=== PATIENT | female | born 1955 | race Caucasian/White ===

== ENCOUNTER 2020-06-05 09:50 | Outpatient (REF) | payer BC, SELFPAY ==
[2020-06-05 11:32] LABS: Alanine Aminotransferase 16 U/L (0-31); Alkaline Phosphatase 81 U/L (39-117); Anion Gap 13 (12-20); Aspartate Amino Transferase 12 U/L (5-31); Bilirubin Total 0.6 mg/dL (0.0-1.0); Blood Urea Nitrogen 22 mg/dL (9-16); Carbon Dioxide 29 mmol/L (22-29); Chloride 103 mmol/L (96-108); Estimated Glomerular Filt Rate > 60; Glucose Random 110 mg/dL (60-115); Potassium 4.3 mmol/l (3.3-5.1); Sodium 141 mmol/L (135-145); Total Protein 6.4 g/dL (6.5-8.0)
== END 2020-06-05 09:51 | disposition home or self-care (01) ==
LOC: HO.HMGCLDS 09:50
PROVIDERS: PCP Internal Medicine; Visit Provider Internal Medicine
DX: R60.9 Edema, unspecified (principal); I10 Essential (primary) hypertension
CPT/HCPCS: 36415; 80053

== ENCOUNTER 2020-08-08 09:43 | Outpatient (REF) | payer BC, SELFPAY ==
[2020-08-08 11:38] LABS: Hematocrit 40.1 % (37-47); Hemoglobin 12.4 g/dl (12.0-16.0); Mean Corpuscular HGB Conc 30.9 g/dl (31.0-35.0); Mean Corpuscular Hemoglobin 27.3 pg (27.0-33.0); Mean Corpuscular Volume 88.1 fL (80-98); Mean Platelet Volume 10.5 fL (9.4-12.3); Platelet Count 229 X10*3/uL (160-400); Red Blood Count 4.55 X10*6/uL (4.20-5.50); Red Cell Distribution Width 15.7 % (11.0-16.0); White Blood Count 5.5 X10*3/uL (4.8-10.8)
[2020-08-08 12:01] LABS: Alanine Aminotransferase 18 U/L (0-31); Alkaline Phosphatase 58 U/L (39-117); Anion Gap 10 (12-20); Aspartate Amino Transferase 15 U/L (5-31); Bilirubin Total 0.6 mg/dL (0.0-1.0); Blood Urea Nitrogen 22 mg/dL (9-16); Calcium 8.9 mg/dL (8.4-10.2); Carbon Dioxide 34 mmol/L (22-29); Chloride 102 mmol/L (96-108); Cholesterol 145 mg/dL; Estimated Glomerular Filt Rate > 60; Glucose Fasting 103 mg/dL (60-99); HDL Cholesterol 54 mg/dL; LDL Cholesterol Calculated 64 mg/dl; Potassium 3.9 mmol/L (3.3-5.1); Sodium 142 mmol/L (135-145); Total Protein 6.4 g/dL (6.5-8.0); Triglycerides 138 mg/dL
[2020-08-08 12:12] LABS: TSH reflex Free T4 1.44 uIU/mL (0.32-4.0)
== END 2020-08-08 09:44 | disposition home or self-care (01) ==
LOC: HO.HMGCLDS 09:43
PROVIDERS: PCP Internal Medicine; Visit Provider Internal Medicine
DX: E78.5 Hyperlipidemia, unspecified (principal); I10 Essential (primary) hypertension; I25.10 Atherosclerotic heart disease of native coronary artery without angina pectoris
CPT/HCPCS: 36415; 80053; 80061; 84443; 85027

== ENCOUNTER 2021-09-04 09:03 | Outpatient (REF) | payer BC, MEDICARE, SELFPAY ==
[2021-09-04 11:37] LABS: Hematocrit 38.4 % (37.0-47.0); Hemoglobin 12.3 g/dl (12.0-16.0); Mean Corpuscular Hemoglobin 28.5 pg (27.0-33.0); Mean Corpuscular Volume 88.9 fL (80.0-98.0); Mean Platelet Volume 10.5 fL (9.4-12.3); Platelet Count 218 X10*3/uL (160-400); Red Blood Count 4.32 X10*6/uL (4.20-5.50); Red Cell Distribution Width 14.4 % (11.0-16.0); White Blood Count 4.9 X10*3/uL (4.8-10.8)
[2021-09-04 11:56] LABS: Alanine Aminotransferase 14 U/L (0-31); Albumin Level 3.9 g/dL (3.5-5.0); Alkaline Phosphatase 61 U/L (39-117); Anion Gap 13 (12-20); Aspartate Amino Transferase 15 U/L (5-31); Bilirubin Total 0.5 mg/dL (0.0-1.0); Blood Urea Nitrogen 19 mg/dL (9-16); Calcium 9.5 mg/dL (8.4-10.2); Carbon Dioxide 29 mmol/L (22-29); Chloride 104 mmol/L (96-108); Cholesterol 139 mg/dL; Estimated Glomerular Filt Rate > 60; Glucose Fasting 106 mg/dL (60-99); HDL Cholesterol 49 mg/dL; LDL Cholesterol Calculated 68 mg/dl; Potassium 3.6 mmol/L (3.3-5.1); Sodium 142 mmol/L (135-145); Total Protein 6.4 g/dL (6.5-8.0); Triglycerides 110 mg/dL
[2021-09-04 12:05] LABS: TSH reflex Free T4 1.65 uIU/mL (0.32-4.0)
== END 2021-09-04 09:04 | disposition home or self-care (01) ==
LOC: HO.HMGCLDS 09:03
PROVIDERS: PCP Internal Medicine; Visit Provider Internal Medicine
DX: Z00.00 Encounter for general adult medical examination without abnormal findings (principal); I10 Essential (primary) hypertension; E78.2 Mixed hyperlipidemia
CPT/HCPCS: 36415; 80053; 80061; 84443; 85027

== ENCOUNTER 2022-04-16 09:58 | Outpatient (REF) | payer BC, MEDICARE, SELFPAY ==
[2022-04-16 12:25] LABS: Creatinine Urine 116.31 mg/dL; Microalbum/Creatinine Ratio Ur 6.8 ug/mg cr
[2022-04-16 12:44] LABS: Estimated Average Glucose 117 mg/dL; Hemoglobin A1c % 5.7 %
[2022-04-16 12:59] LABS: Alanine Aminotransferase 15 U/L (0-31); Albumin Level 4.2 g/dL (3.5-5.0); Alkaline Phosphatase 66 U/L (39-117); Anion Gap 11 (12-20); Aspartate Amino Transferase 16 U/L (5-31); Bilirubin Total 0.8 mg/dL (0.0-1.0); Blood Urea Nitrogen 19 mg/dL (9-16); Calcium 9.3 mg/dL (8.4-10.2); Carbon Dioxide 32 mmol/L (22-29); Chloride 103 mmol/L (96-108); Cholesterol 156 mg/dL; Estimated Glomerular Filt Rate > 60; Glucose Fasting 96 mg/dL (60-99); HDL Cholesterol 54 mg/dL; LDL Cholesterol Calculated 80 mg/dl; Potassium 3.6 mmol/L (3.3-5.1); Sodium 142 mmol/L (135-145); Total Protein 6.6 g/dL (6.5-8.0); Triglycerides 114 mg/dL
== END 2022-04-16 09:59 | disposition home or self-care (01) ==
LOC: HO.HMGCLDS 09:58
PROVIDERS: PCP Internal Medicine; Visit Provider Internal Medicine
DX: I10 Essential (primary) hypertension (principal); R73.9 Hyperglycemia, unspecified; E78.5 Hyperlipidemia, unspecified
CPT/HCPCS: 36415; 80053; 80061; 82043; 83036

== ENCOUNTER 2022-04-16 10:53 | Outpatient (REF) | payer BC, MEDICARE, SELFPAY ==
[2022-04-18 22:04] LABS: HPV mRNA E6/E7 Not Detected (Not Detected)
== END 2022-04-16 10:54 | disposition home or self-care (01) ==
LOC: HO.LNP 10:53
PROVIDERS: Visit Provider Internal Medicine
DX: Z01.419 Encounter for gynecological examination (general) (routine) without abnormal findings (principal); Z11.51 Encounter for screening for human papillomavirus (HPV)
CPT/HCPCS: 87624; 88142

== ENCOUNTER 2022-10-15 08:58 | Outpatient (REF) | payer MEDICARE, SELFPAY ==
[2022-10-15 12:20] LABS: Alanine Aminotransferase 15 U/L (0-31); Albumin Level 3.9 g/dL (3.5-5.0); Alkaline Phosphatase 80 U/L (39-117); Anion Gap 10 (12-20); Aspartate Amino Transferase 15 U/L (5-31); Bilirubin Total 0.6 mg/dL (0.0-1.0); Blood Urea Nitrogen 13 mg/dL (9-16); Calcium 9.3 mg/dL (8.4-10.2); Carbon Dioxide 29 mmol/L (22-29); Chloride 108 mmol/L (96-108); Cholesterol 171 mg/dL; Estimated Glomerular Filt Rate > 60; Glucose Fasting 103 mg/dL (60-99); HDL Cholesterol 54 mg/dL; LDL Cholesterol Calculated 94 mg/dl; Potassium 4.1 mmol/L (3.3-5.1); Sodium 143 mmol/L (135-145); Total Protein 6.3 g/dL (6.5-8.0); Triglycerides 119 mg/dL
[2022-10-15 12:24] LABS: Estimated Average Glucose 108 mg/dL; Hemoglobin A1c % 5.4 %
== END 2022-10-15 08:59 | disposition home or self-care (01) ==
LOC: HO.HMGCLDS 08:58
PROVIDERS: PCP Internal Medicine; Visit Provider Internal Medicine
DX: Z00.00 Encounter for general adult medical examination without abnormal findings (principal); R73.9 Hyperglycemia, unspecified; E78.5 Hyperlipidemia, unspecified
CPT/HCPCS: 36415; 80053; 80061; 83036

== ENCOUNTER 2023-04-29 08:16 | Outpatient (AMB) | payer BC, MEDICARE, SELFPAY ==
[2023-04-29 08:19] VITALS: BP 120/74; PULSE 71; O2SAT 97; BMI 39.1
--- NOTE | 2023-04-29 08:19 | MHC.PC.OV ---
Vital Signs 04/29/23 08:19 Height 5 ft 4 in Weight 228 lb BMI 39.1 BP 120/74 Blood Pressure Location Rt brachial Position Sitting Pulse 71 Pulse Source Pulse Oximeter Pulse Oximetry (%) 97 Intake Visit Reasons: Annual PE Intake Note: pt is here for annual exam, physical colonoscopy completed 2017, 10 year repeat last mammo 04/[address], upcoming [facility] mammo 05/2023 [employer] Machin[employer] Required: No Accompanied by: Self / Same As Patient Allergies lisinopril Allergy (Unknown, Verified 04/29/23 08:20) Cough Medication List - Last Reconciled 04/29/23 by Taryn Payton MD amlodipine 5 mg PO DAILY aspirin 81 mg PO DAILY carvedilol 25 mg PO BID furosemide 20 mg PO Q OTHER DAY losartan 100 mg PO DAILY omeprazole 20 mg PO DAILY potassium chloride ER 10 mEq PO Q OTHER DAY rosuvastatin 40 mg PO DAILY triamterene-hydrochlorothiazid 37.5-25 mg 1 tab PO DAILY Tobacco use date assessed: 04/29/23 Fall risk assessment: No Falls in past year Last assessed Fall Risk: 04/29/23 Dental Screening Dental Screen Date: 04/29/23 Did you have a dental visit in the last 12 months?: Yes Did you have a dental problem in the last 6 months where you did not have access to dental care?: No Was dental information given to patient?: Patient has dentist HPI Annual PE HPI Details Pt presents for PE. Patient's granddaughter had a baby boy 7 months ago. [facility] Medical History Hyperglycemia [place] of foot Annual physical exam Edema Obese Abnormal Pap smear of cervix Osteoarthritis of right hip History of mammogram Goiter Hypertension GERD (gastroesophageal reflux disease) Coronary artery disease Hyperlipidemia Surgical History H/O colonoscopy History of esophagogastroduodenoscopy (EGD) Family History Father No problems noted. Mother HTN (hypertension) Social History Housing: House Patient Tobacco Use Status: Former Tobacco user Quit Date: over 20 years ago e-Cigarette/Vaping Use: Never Used Current occupational status: employed Cognitive needs: No Hearing needs: No Vision needs: Yes Questionnaire PHQ-9 Over the last 2 weeks, how often have you been bothered by any of the following problems? 1. Little interest or pleasure in doing things: not at all 2. Feeling down, depressed, or hopeless: not at all 3. Trouble falling or staying asleep, or sleeping too much: not at all 4. Feeling tired or having little energy: not at all 5. Poor appetite or overeating: not at all 6. Feeling bad about yourself - or that you are a failure or have let yourself or your family down: not at all 7. Trouble concentrating on things, such as reading the newspaper or watching television: not at all 8. Moving or speaking so slowly that other people could have noticed. Or the opposite - being so fidgety or restless that you have been moving around a lot more than usual: not at all 9. Thoughts that you would be better off or of hurting yourself in some way: not at all Total score: 0 Depression Screening Interpretation: Negative Depression Screening Done: Yes 10948 - PHQ-9 Billing: Yes Source: Developed by Drs. Luc Hammer, Masha Mae, Wayne Ackerman and colleagues, with an educational ted from [employer] Thrive Questionnaire Date Thrive assessed: 09/11/21 AUDIT C Alcohol Use Questionnaire (AUDIT-C) 1. How often do you have a drink containing alcohol?: Monthly or less 2. How many drinks containing alcohol do you have on a typical day when you are drinking?: 1 or 2 3. How often do you have six or more drinks on one occasion?: Never Total Score: 1 Score Reviewed/Action Taken: Yes CAROLINA-7 AMB Questionnaire CAR[place]INA-7 Date CAROLINA - 7 assessed: 04/29/23 Feeling nervous, anxious, or on edge: 0 = Not at all Not being able to stop or control worryin = Not at all Worrying too much about different things: 0 = Not at all Trouble relaxin = Not at all Being so restless that it is hard to sit still: 0 = Not at all Becoming easily annoyed or irritable: 0 = Not at all Feeling afraid as if something awful might happen: 0 = Not at all Total CAR[place]INA-7 score (0-4 normal; 5-9 mild; 10-14 moderate; 15-21 severe): 0 Source: Developed by Drs. Luc Hammer, Masha Mae, Wayne Ackerman and colleagues, with an educational ted from [employer]. CAR[place]INA-7 Assessment Billing CAR[place]INA-7 Assessment Tool: CAR[place]-7 Assessment 37821 Review of Systems Const All systems reviewed & are unremarkable except as noted in HPI and below Reports no additional complaints Eyes Reports no additional complaints ENT Reports no additional complaints Card Reports no additional complaints Resp Reports no additional complaints GI Reports no additional complaints Reports no additional complaints Physical exam (Primary Care) Vital Signs: Last Vital Signs Pulse 71 04/29/23 08:19 BP 120/74 04/29/23 08:19 Pulse Ox 97 04/29/23 08:19 BMI result Body Mass Index 39.1 Tobacco/Smoking Status: Tobacco use Status Tobacco use date assessed 04/29/23 04/29/23 08:21 Patient Tobacco Use Status Former Tobacco user 04/29/23 08:21 e-Cigarette/Vaping Use Never Used 04/29/23 08:21 PHQ-9: PHQ-9 Score PHQ-9: Total score 0 04/29/23 08:30 Depression Screening Interpretation: Negative Thrive Assessment: Date of Thrive Assessment Date Thrive assessed 09/11/21 04/29/23 08:21 Const General: no acute distress HENMT Ears: hearing grossly normal bilaterally Face and sinus: Yes normal facial exam Mouth: Normal oral and palatal mucosa present Throat: Yes posterior oropharynx normal Eyes General: appearance normal, both eyes and all related structures Neck Neck: Yes no lymphadenopathy and Yes supple Thyroid: diffusely enlarged Resp Effort & Inspection: normal respiratory effort Auscultation: clear to auscultation bilaterally Cardio Rhythm: regular rhythm Heart sounds: S1 normal heart sound present and S2 normal heart sound present GI Inspection: Yes normal to inspection Palpation (GI): Soft to palpation Percussion: Yes normal to percussion Auscultation: normal bowel sounds Assessment and Plan Assessment & Plan (1) Goiter: Comment: US 2019, multiple small nodules Code(s): E04.9 - Nontoxic goiter, unspecified Plan: recheck thyroid US (2) Coronary artery disease: Comment: s/p stent 99% lesion in LAD 06/19/2013 nl stress test 10/2013, negative nuclear stress test 02/2019 at [facility] Code(s): I25.10 - Atherosclerotic heart disease of [place] coronary artery without angina pectoris Plan: Continue current medications regular physical activity follow-up with relationship manager annually (3) Hypertension: Comment: BP goal less than 130/80 Code(s): I10 - Essential (primary) hypertension Plan: Continue medications (4) Hyperlipidemia: Code(s): E78.5 - Hyperlipidemia, unspecified Plan: Continue statin (5) Annual physical exam: Code(s): Z00.00 - Encounter for general adult medical examination without abnormal findings Plan: Well-balanced diet and regular physical activity weight loss discussed with the patient. She is up-to-date with the mammogram and colonoscopy. Patient will return in 6 months (6) Hyperglycemia: Code(s): R73.9 - Hyperglycemia, unspecified Orders: Orders Hemoglobin A1c 6 Months E78.5 - Hyperlipidemia, unspecified, I10 - Essential (primary) hypertension, R73.9 - Hyperglycemia, unspecified US thyroid Today E04.9 - Nontoxic goiter, unspecified Comprehensive [place]. Panel Fast 6 Months E78.5 - Hyperlipidemia, unspecified, I10 - Essential (primary) hypertension, R73.9 - Hyperglycemia, unspecified Lipid Panel 6 Months E78.5 - Hyperlipidemia, unspecified, I10 - Essential (primary) hypertension, R73.9 - Hyperglycemia, unspecified Coding Level of Care Code Est Pt Prev Care >65y(24889) Diagnoses Goiter E04.9 Coronary artery disease I25.10 Hypertension I10 Hyperlipidemia E78.5 Annual physical exam Z00.00 Hyperglycemia R73.9 Additional Codes CAROLINA-7 Assessment Billing - CAR[place]INA-7 Assessment Tool: CAROLINA-7 Assessment [id number] ([id number])
== END 2023-04-29 08:52 | disposition home or self-care (01) ==
PROVIDERS: PCP Internal Medicine; Visit Provider Internal Medicine
DX: E04.9 Nontoxic goiter, unspecified (principal); I25.10 Atherosclerotic heart disease of native coronary artery without angina pectoris; I10 Essential (primary) hypertension; E78.5 Hyperlipidemia, unspecified; Z00.00 Encounter for general adult medical examination without abnormal findings; R73.9 Hyperglycemia, unspecified
CPT/HCPCS: 99397

== ENCOUNTER 2023-04-29 08:54 | Outpatient (REF) | payer BC, MEDICARE, SELFPAY ==
[2023-04-29 11:32] LABS: MANUAL DIFF FLAG NO
[2023-04-29 11:57] LABS: Estimated Average Glucose 114 mg/dL; Hemoglobin A1c % 5.6 % (<6.0)
[2023-04-29 12:05] LABS: Basophils Percent Auto 0.6 % (0-2); Eosinophils Absolute Auto 0.1 X10*3/uL (0.0-0.4); Eosinophils Percent Auto 2.8 % (0-4); Hematocrit 39.6 % (37.0-47.0); Hemoglobin 12.7 g/dl (12.0-16.0); Imm Gran Abs Auto 0.01 X10*3/uL (0.00-0.03); Imm Gran Pct Auto 0.2 % (0.0-0.4); Lymphocytes Absolute Auto 1.6 X10*3/uL (1.2-4.9); Lymphocytes Percent Auto 35.1 % (20-40); Mean Corpuscular HGB Conc 32.1 g/dl (31.0-35.0); Mean Corpuscular Hemoglobin 28.6 pg (27.0-33.0); Mean Corpuscular Volume 89.2 fL (80.0-98.0); Mean Platelet Volume 10.1 fL (9.4-12.3); Monocytes Absolute Auto 0.4 X10*3/uL (0.1-1.2); Monocytes Percent Auto 9.5 % (2-11); Neutrophils Absolute Auto 2.4 x10*3/uL (2.0-8.3); Neutrophils Percent Auto 51.8 % (45-73); Platelet Count 223 X10*3/uL (160-400); Red Blood Count 4.44 X10*6/uL (4.20-5.50); Red Cell Distribution Width 14.5 % (11.0-16.0); White Blood Count 4.6 X10*3/uL (4.8-10.8)
[2023-04-29 12:42] LABS: Creatinine Urine 132.72 mg/dL
[2023-04-29 12:50] LABS: Alanine Aminotransferase 16 U/L (0-31); Alkaline Phosphatase 52 U/L (39-117); Anion Gap 11 (12-20); Aspartate Amino Transferase 17 U/L (5-31); Bilirubin Total 0.5 mg/dL (0.0-1.0); Blood Urea Nitrogen 17 mg/dL (9-16); Calcium 9.3 mg/dL (8.4-10.2); Carbon Dioxide 29 mmol/L (22-29); Chloride 105 mmol/L (96-108); Estimated Glomerular Filt Rate > 60; Glucose Fasting 77 mg/dL (60-99); Potassium 3.4 mmol/L (3.3-5.1); Sodium 142 mmol/L (135-145); Total Protein 6.7 g/dL (6.5-8.0)
[2023-04-29 13:04] LABS: TSH reflex Free T4 1.03 uIU/mL (0.32-4.0)
== END 2023-04-29 08:55 | disposition home or self-care (01) ==
LOC: HO.HMGCLDS 08:54
PROVIDERS: PCP Internal Medicine; Visit Provider Internal Medicine
DX: I10 Essential (primary) hypertension (principal); R73.9 Hyperglycemia, unspecified; E78.5 Hyperlipidemia, unspecified
CPT/HCPCS: 36415; 80053; 82043; 82570; 83036; 84443; 85025

== ENCOUNTER 2023-05-27 07:59 | Outpatient (AMB) | payer BC, MEDICARE, SELFPAY ==
[2023-05-27 08:01] VITALS: BP 118/70; PULSE 75; TEMP 37; O2SAT 97; BMI 39.1
--- NOTE | 2023-05-27 08:01 | MHC.OFFWIV ---
Intake Vital Signs 05/27/23 08:01 Height 5 ft 4 in Weight 228 lb BMI 39.1 BP 118/70 Blood Pressure Location Lt brachial Position Sitting Pulse 75 Pulse Source Pulse Oximeter Temp 98.6 F Temp Source Oral Pulse Oximetry (%) 97 Oxygen Delivery Method Room Air Intake Visit Reasons: Est/congestion (lobby masked) Intake Note: pt is here for c.o congestion, coughing since 05/10/23 pt had covid in the beginning of the year and states she is still sick Patient Tobacco Use Status: Former Tobacco user Quit Date: over 20 years ago Allergies lisinopril Allergy (Unknown, Verified 05/27/23 08:05) Cough Do you need a note to return to daycare/school/sports/work: Yes HPI HPI Comments History of Present Illness Details The patient presents to urgent care for evaluation of cough. She reports that in the beginning the year about 2 weeks ago she developed COVID and got over that. She states around May 17 or she started developing congestion symptoms again that felt different than what she previously had with COVID. She reports that she has had an ongoing cough. No fever no shortness a breath nasal congestion. [facility] Medical History Hyperglycemia [place] of foot Annual physical exam Edema Obese Abnormal Pap smear of cervix Osteoarthritis of right hip History of mammogram Goiter Hypertension GERD (gastroesophageal reflux disease) Coronary artery disease Hyperlipidemia Surgical History H/O colonoscopy History of esophagogastroduodenoscopy (EGD) Family History Father No problems noted. Mother HTN (hypertension) Social History Housing: House Patient Tobacco Use Status: Former Tobacco user Quit Date: over 20 years ago e-Cigarette/Vaping Use: Never Used Current occupational status: employed Cognitive needs: No Hearing needs: No Vision needs: Yes Review of Systems Const Reports headache(s) and Denies increased appetite ENT Reports headache(s), Reports nasal obstruction, Denies disequilibrium, Reports post nasal drip, Reports sinus pain and Denies sore throat Card Denies radiating jaw, neck or arm pain and Denies dyspnea Resp Denies hemoptysis and Denies dyspnea Neuro Reports headache(s) and Denies disequilibrium Physical Exam Vital Signs: Last Vital Signs Temp 98.6 F 05/27/23 08:01 Pulse 75 05/27/23 08:01 BP 118/70 05/27/23 08:01 Pulse Ox 97 05/27/23 08:01 Oxygen Delivery Method Room Air 05/27/23 08:01 BMI result Body Mass Index 39.1 Const General: healthy appearing and no acute distress Chest Chest palpation & inspection: normal inspection of the chest Resp Effort & Inspection: normal respiratory effort and able to speak in complete sentences Auscultation: clear to auscultation bilaterally Assessment & Plan Assessment & Plan (1) Cough: Code(s): R05.9 - Cough, unspecified Plan Lungs are clear patient well-appearing vital signs unremarkable. Symptoms likely consistent with viral URI. Patient will be prescribed course of Tessalon Perles to see this is helpful for her cough. Though in the office there was no coughing. Coding Level of Care Code Est Pt Level 3 (45582) Diagnoses Cough R05.9
== END 2023-05-27 09:06 | disposition home or self-care (01) ==
PROVIDERS: PCP Internal Medicine; Visit Provider Emergency Medicine
DX: R05.9 Cough, unspecified (principal)
CPT/HCPCS: 99213

== ENCOUNTER 2023-07-01 08:19 | Outpatient (REF) | payer BC, MEDICARE, SELFPAY ==
--- NOTE | ~2023-07-01 | US_ITS ---
EXAMINATION: US THYROID CLINICAL INFORMATION: Nontoxic goiter, unspecified. COMPARISON: Ultrasound soft tissue head/neck thyroid dated 02/22/2019. TECHNIQUE: Linear transducer grayscale and color Doppler examination with attention to the region of the thyroid. FINDINGS: SIZE: Measurements of the thyroid lobes and nodules are given in sagittal, anteroposterior and transverse dimensions respectively. Right Thyroid Lobe: 4.7 x 1.6 x 2.0 cm, volume 7.8 mL. Previously 4.9 x 1.6 x 1.7 cm, volume 7.0 mL. Parenchyma: The gland echotexture is homogeneous. Thyroid vascularity is normal. Left Thyroid Lobe: 4.8 x 1.4 x 1.8 cm, volume 6.0 mL. Previously 4.1 x 1.6 x 1.8 cm, volume 6.2 mL. Parenchyma: The gland echotexture is homogeneous. Thyroid vascularity is normal. Isthmus: 0.48 cm in maximum AP dimension. Previously 0.50 cm. Estimated total number of nodules greater than or equal to 1 cm: 1. Aviation Safety Inspector nodules are described as follows: 1. Location: Right mid. Size: 0.64 x 0.40 x 0.47 cm, volume 0.06 mL. Previously: 0.70 x 0.40 x 0.50 cm, volume 0.07 mL. Nodule characteristics: Composition: Spongiform (0). Echogenicity: Anechoic (0). Shape: Not taller than wide (0). Margins: Smooth (0). Echogenic Foci: None (0). ACR TI-RADS total points: 0 ACR TI-RADS category: 1 Significant change in size (>/= 20% in 2 dimensions and minimal increase of 2 mm or 50% or greater increase in volume): No Change in features: No Change in ACR TI-RADS risk category: No 2. Location: Left superior. Size: 1.5 x 0.94 x 1.4 cm, volume 1.1 mL. Previously: 1.2 x 0.60 x 0.80 cm, volume 0.30 mL. Nodule characteristics: Composition: Mixed cystic and solid (1). Echogenicity: Hypoechoic (2). Shape: Not taller than wide (0). Margins: Smooth (0). Echogenic Foci: None (0). ACR TI-RADS total points: 3 ACR TI-RADS category: 3 Significant change in size (>/= 20% in 2 dimensions and minimal increase of 2 mm or 50% or greater increase in volume): Yes Change in features: No Change in ACR TI-RADS risk category: No 3. Location: Left inferior. Size: 0.75 x 0.38 x 0.65 cm, volume 0.10 mL. Previously: 0.76 x 0.33 x 0.66 cm, volume 0.09 mL. Nodule characteristics: Composition: Mixed cystic and solid (1). Echogenicity: Hypoechoic (2). Shape: Not taller than wide (0). Margins: Smooth (0). Echogenic Foci: None (0). ACR TI-RADS total points: 3 ACR TI-RADS category: 3 Significant change in size (>/= 20% in 2 dimensions and minimal increase of 2 mm or 50% or greater increase in volume): No Change in features: No Change in ACR TI-RADS risk category: No 4. Location: Left mid. Size: 0.41 x 0.28 x 0.44 cm, volume 0.03 mL. Previously: 0.58 x 0.29 x 0.60 cm, volume 0.05 mL. Nodule characteristics: Composition: Cystic(0). ACR TI-RADS total points: 0 ACR TI-RADS category: 1 Significant change in size (>/= 20% in 2 dimensions and minimal increase of 2 mm or 50% or greater increase in volume): No Change in features: No Change in ACR TI-RADS risk category: No NODES: No lymphadenopathy is seen in the tissue surrounding the thyroid gland. US/US thyroid IMPRESSION: Left 1.5 cm superior pole TI-RADS 3 nodule. Per ACR criteria given size greater than 1.5 cm, annual follow-up is recommended at 1, 2, 3, and 5 years from date of baseline exam. Remaining nodules do not meet ACR criteria for followup. ACR TI-RADS RECOMMENDATION REFERENCE: Ultrasound-guided fine-needle aspiration, follow up ultrasound, no further followup. * TR1 (0 point) and TR2 (2 points): No FNA or followup * TR3 (3 points): FNA if more than or equal to 2.5 cm in maximum dimension, follow up ultrasound in 1, 3 and 5 years if 1.5 to 2.4 cm in maximum dimension. * TR4 (4-6 points): FNA if more than or equal to 1.5 cm in maximum dimension, follow up ultrasound in 1, 2, 3 and 5 years if 1 to 1.4 cm in maximum dimension. * TR5 (more than or equal to 7 points): FNA if more than or equal to 1 cm in maximum dimension, follow up ultrasound every year for 5 years if 0.5 to 0.9 cm in maximum dimension. * TR3, TR4 or TR5 nodules that are below the size threshold for follow up receive no followup.
== END 2023-07-01 08:20 | disposition home or self-care (01) ==
LOC: HO.HMGCX 08:19
PROVIDERS: PCP Internal Medicine; Visit Provider Internal Medicine
DX: E04.9 Nontoxic goiter, unspecified (principal)
CPT/HCPCS: 76536

== ENCOUNTER 2023-12-09 08:49 | Outpatient (REF) | payer BC, MEDICARE, SELFPAY ==
[2023-12-09 10:17] LABS: Estimated Average Glucose 114 mg/dL; Hemoglobin A1c % 5.6 % (<6.0)
[2023-12-09 11:24] LABS: Alanine Aminotransferase 15 U/L (0-31); Albumin Level 3.9 g/dL (3.5-5.0); Alkaline Phosphatase 60 U/L (39-117); Anion Gap 9 (12-20); Aspartate Amino Transferase 14 U/L (5-31); Bilirubin Total 0.5 mg/dL (0.0-1.0); Blood Urea Nitrogen 18 mg/dL (9-16); Calcium 9.3 mg/dL (8.4-10.2); Carbon Dioxide 31 mmol/L (22-29); Chloride 106 mmol/L (96-108); Cholesterol 144 mg/dL (<200); Estimated Glomerular Filt Rate > 60; Glucose Fasting 108 mg/dL (60-99); HDL Cholesterol 53 mg/dL (>40); LDL Cholesterol Calculated 64 mg/dL (<100); Potassium 3.8 mmol/L (3.3-5.1); Sodium 142 mmol/L (135-145); Total Protein 6.4 g/dL (6.5-8.0); Triglycerides 136 mg/dL (<150)
== END 2023-12-09 08:50 | disposition home or self-care (01) ==
LOC: HO.HMGCLDS 08:49
PROVIDERS: PCP Internal Medicine; Visit Provider Internal Medicine
DX: R73.9 Hyperglycemia, unspecified (principal); E78.5 Hyperlipidemia, unspecified; I10 Essential (primary) hypertension
CPT/HCPCS: 36415; 80053; 80061; 83036

== ENCOUNTER 2023-12-09 09:04 | Outpatient (AMB) | payer BC, MEDICARE, SELFPAY ==
[2023-12-09 09:29] VITALS: BP 114/66; PULSE 61; O2SAT 96; BMI 39.5
--- NOTE | 2023-12-09 09:29 | MHC.PC.OV ---
Vital Signs 12/09/23 09:29 Height 5 ft 4 in Weight 230 lb BMI 39.5 BP 114/66 Blood Pressure Location Rt brachial Position Sitting Pulse 61 Pulse Source Pulse Oximeter Pulse Oximetry (%) 96 Oxygen Delivery Method Room Air Intake Visit Reasons: 6mnth f/u chk up Intake Note: Pt is here today for 6 months follow up visit. Allergies lisinopril Allergy (Unknown, Verified 12/09/23 09:30) Cough Medication List - Last Reconciled 12/09/23 by Taryn Payton MD amlodipine 5 mg PO DAILY aspirin 81 mg PO DAILY carvedilol 25 mg PO BID furosemide 20 mg PO Q OTHER DAY losartan 100 mg PO DAILY omeprazole 20 mg PO DAILY potassium chloride ER 10 mEq PO Q OTHER DAY rosuvastatin 40 mg PO DAILY triamterene-hydrochlorothiazid 37.5-25 mg 1 tab PO DAILY Tobacco use date assessed: 12/09/23 Fall risk assessment: No Falls in past year Last assessed Fall Risk: 12/09/23 Dental Screening Dental Screen Date: 12/09/23 Did you have a dental visit in the last 12 months?: Yes Did you have a dental problem in the last 6 months where you did not have access to dental care?: No Was dental information given to patient?: Patient has dentist HPI 6mnth f/u chk up HPI Details Patient presents for the follow-up on hypertension hyperlipidemia stable on current medications. [facility] Medical History Hyperglycemia [place] of foot Annual physical exam Edema Obese Abnormal Pap smear of cervix Osteoarthritis of right hip History of mammogram Goiter Hypertension GERD (gastroesophageal reflux disease) Coronary artery disease Hyperlipidemia Surgical History H/O colonoscopy History of esophagogastroduodenoscopy (EGD) Family History Father No problems noted. Mother HTN (hypertension) Social History Housing: House Patient Tobacco Use Status: Former Tobacco user e-Cigarette/Vaping Use: Never Used service: No Current occupational status: employed Cognitive needs: No Hearing needs: No Vision needs: Yes Questionnaire PHQ-9 Over the last 2 weeks, how often have you been bothered by any of the following problems? 1. Little interest or pleasure in doing things: not at all 2. Feeling down, depressed, or hopeless: not at all 3. Trouble falling or staying asleep, or sleeping too much: not at all 4. Feeling tired or having little energy: not at all 5. Poor appetite or overeating: not at all 6. Feeling bad about yourself - or that you are a failure or have let yourself or your family down: not at all 7. Trouble concentrating on things, such as reading the newspaper or watching television: not at all 8. Moving or speaking so slowly that other people could have noticed. Or the opposite - being so fidgety or restless that you have been moving around a lot more than usual: not at all 9. Thoughts that you would be better off or of hurting yourself in some way: not at all Total score: 0 Depression Screening Interpretation: Negative Depression Screening Done: Yes Source: Developed by Drs. Lcu Hammer, Masha Mae, Wayne Ackerman and colleagues, with an educational ted from [employer]. Thrive Questionnaire Date Thrive assessed: 12/09/23 I am a: Patient What is your living situation today?: I have a steady place to live Within the past 12 months, did the food you bought not last and you didn't have the money to get more?: Never true Within the past 12 months, did you worry whether your food would run out before you got money to buy more?: Never true Do you have trouble paying for medicines?: No Do you have trouble getting transportation to medical appointments?: No Do you have trouble paying your heating and electricity bill?: No Do you have trouble taking care of your child, family member or friend?: No Do you have trouble with day-to-day activities such as bathing, preparing meals, shopping, managing finances, etc.?: No Are you currently unemployed and looking for a job?: Yes Are you interested in more education?: No Please select the resources that you would like help with: Housing/Care Home Currently or been in a relationship where the following occur: No concerns reported THRIVE Score: 0 AUDIT C Alcohol Use Questionnaire (AUDIT-C) 1. How often do you have a drink containing alcohol?: Never 3. How often do you have six or more drinks on one occasion?: Never Total Score: 0 CAROLINA-7 AMB Questionnaire CAROLINA-7 Date CAROLINA - 7 assessed: 12/09/23 Feeling nervous, anxious, or on edge: 0 = Not at all Not being able to stop or control worryin = Not at all Worrying too much about different things: 1 = Several days Trouble relaxin = Not at all Being so restless that it is hard to sit still: 0 = Not at all Becoming easily annoyed or irritable: 0 = Not at all Feeling afraid as if something awful might happen: 0 = Not at all Total CAROLINA-7 score (0-4 normal; 5-9 mild; 10-14 moderate; 15-21 severe): 1 Source: Developed by Drs. Luc Hammer, Masha Mae, Wayne Ackerman and colleagues, with an educational ted from [employer]. Review of Systems Const All systems reviewed & are unremarkable except as noted in HPI and below Card Reports no additional complaints Resp Reports no additional complaints GI Reports no additional complaints Reports no additional complaints Physical exam (Primary Care) Vital Signs: Last Vital Signs Pulse 61 12/09/23 09:29 BP 114/66 12/09/23 09:29 Pulse Ox 96 12/09/23 09:29 Oxygen Delivery Method Room Air 12/09/23 09:29 BMI result Body Mass Index 39.5 Tobacco/Smoking Status: Tobacco use Status Tobacco use date assessed 12/09/23 12/09/23 09:30 Patient Tobacco Use Status Former Tobacco user 12/09/23 09:30 e-Cigarette/Vaping Use Never Used 12/09/23 09:30 PHQ-9: PHQ-9 Score PHQ-9: Total score 0 12/09/23 09:37 Depression Screening Interpretation: Negative Thrive Assessment: Date of Thrive Assessment Date Thrive assessed 12/09/23 12/09/23 09:30 Currently or been in a relationship where the following occur: No concerns reported Const General: no acute distress HENMT Head: Yes normal to inspection Eyes General: appearance normal, both eyes and all related structures Resp Effort & Inspection: able to speak in complete sentences Auscultation: clear to auscultation bilaterally Cardio Rhythm: regular rhythm Heart sounds: S1 normal heart sound present and S2 normal heart sound present GI Inspection: Yes normal to inspection Palpation (GI): Soft to palpation Percussion: Yes normal to percussion Assessment and Plan Assessment & Plan (1) Hyperlipidemia: Code(s): E78.5 - Hyperlipidemia, unspecified Plan: cont statin (2) Coronary artery disease: Comment: s/p stent 99% lesion in LAD 06/19/2013 nl stress test 10/2013, negative nuclear stress test 02/2019 at [facility] Code(s): I25.10 - Atherosclerotic heart disease of [place] coronary artery without angina pectoris Plan: Continue current medications (3) Hypertension: Comment: BP goal less than 130/80 Code(s): I10 - Essential (primary) hypertension Plan: Continue current medications Orders: Orders Complete Blood Count Auto Diff 6 Months E78.5 - Hyperlipidemia, unspecified, I10 - Essential (primary) hypertension, I25.10 - Atherosclerotic heart disease of [place] coronary artery without angina pectoris, Z00.00 - Encounter for general adult medical examination without abnormal findings Lipid Panel 6 Months E78.5 - Hyperlipidemia, unspecified, I10 - Essential (primary) hypertension, I25.10 - Atherosclerotic heart disease of [place] coronary artery without angina pectoris, Z00.00 - Encounter for general adult medical examination without abnormal findings Hemoglobin A1c 6 Months E78.5 - Hyperlipidemia, unspecified, I10 - Essential (primary) hypertension, I25.10 - Atherosclerotic heart disease of [place] coronary artery without angina pectoris, Z00.00 - Encounter for general adult medical examination without abnormal findings TSH reflex Free T4 6 Months E78.5 - Hyperlipidemia, unspecified, I10 - Essential (primary) hypertension, I25.10 - Atherosclerotic heart disease of [place] coronary artery without angina pectoris, Z00.00 - Encounter for general adult medical examination without abnormal findings Comprehensive [place]. Panel Fast 6 Months E78.5 - Hyperlipidemia, unspecified, I10 - Essential (primary) hypertension, I25.10 - Atherosclerotic heart disease of [place] coronary artery without angina pectoris, Z00.00 - Encounter for general adult medical examination without abnormal findings Microalbumin, Random (w Creat) 6 Months E78.5 - Hyperlipidemia, unspecified, I10 - Essential (primary) hypertension, I25.10 - Atherosclerotic heart disease of [place] coronary artery without angina pectoris, Z00.00 - Encounter for general adult medical examination without abnormal findings Coding Level of Care Code Est Pt Level 4 (21005) Diagnoses Hyperlipidemia E78.5 Coronary artery disease I25.10 Hypertension I10
== END 2023-12-09 09:50 | disposition home or self-care (01) ==
PROVIDERS: PCP Internal Medicine; Visit Provider Internal Medicine
DX: E78.5 Hyperlipidemia, unspecified (principal); I25.10 Atherosclerotic heart disease of native coronary artery without angina pectoris; I10 Essential (primary) hypertension
CPT/HCPCS: 99214

== ENCOUNTER 2024-06-14 09:10 | Outpatient (REF) | payer BC, MEDICARE, SELFPAY ==
[2024-06-14 09:53] LABS: MANUAL DIFF FLAG NO
[2024-06-14 10:01] LABS: Basophils Percent Auto 0.8 % (0-2); Eosinophils Absolute Auto 0.2 X10*3/uL (0.0-0.4); Eosinophils Percent Auto 4.3 % (0-4); Hematocrit 39.3 % (37.0-47.0); Hemoglobin 12.7 g/dl (12.0-16.0); Imm Gran Abs Auto 0.01 X10*3/uL (0.00-0.03); Imm Gran Pct Auto 0.2 % (0.0-0.4); Lymphocytes Absolute Auto 1.7 X10*3/uL (1.2-4.9); Lymphocytes Percent Auto 32.3 % (20-40); Mean Corpuscular HGB Conc 32.3 g/dl (31.0-35.0); Mean Corpuscular Hemoglobin 28.5 pg (27.0-33.0); Mean Corpuscular Volume 88.3 fL (80.0-98.0); Mean Platelet Volume 9.9 fL (9.4-12.3); Monocytes Absolute Auto 0.5 X10*3/uL (0.1-1.2); Neutrophils Absolute Auto 2.8 x10*3/uL (2.0-8.3); Neutrophils Percent Auto 52.4 % (45-73); Platelet Count 235 X10*3/uL (160-400); Red Blood Count 4.45 X10*6/uL (4.20-5.50); White Blood Count 5.3 X10*3/uL (4.8-10.8)
[2024-06-14 10:17] LABS: Estimated Average Glucose 120 mg/dL; Hemoglobin A1C 136.0187 umol/L; Hemoglobin A1c % 5.8 % (<6.0); Total Hemoglobin (HGBA1C) 3407.4864 umol/L
[2024-06-14 10:42] LABS: Creatinine Urine 99.43 mg/dL; Microalbum/Creatinine Ratio Ur 21.1 ug/mg cr (<30)
[2024-06-14 10:55] LABS: Alanine Aminotransferase 23 U/L (0-31); Alkaline Phosphatase 58 U/L (39-117); Anion Gap 9 (12-20); Aspartate Amino Transferase 23 U/L (5-31); Bilirubin Total 0.6 mg/dL (0.0-1.0); Blood Urea Nitrogen 19 mg/dL (9-16); Calcium 8.7 mg/dL (8.4-10.2); Carbon Dioxide 30 mmol/L (22-29); Chloride 104 mmol/L (96-108); Cholesterol 141 mg/dL (<200); Estimated Glomerular Filt Rate > 60; Glucose Fasting 94 mg/dL (60-99); HDL Cholesterol 51 mg/dL (>40); LDL Cholesterol Calculated 69 mg/dL (<100); Potassium 3.2 mmol/L (3.3-5.1); Sodium 140 mmol/L (135-145); Total Protein 7.1 g/dL (6.5-8.0); Triglycerides 109 mg/dL (<150)
[2024-06-14 11:13] LABS: TSH reflex Free T4 1.06 uIU/mL (0.32-4.0)
== END 2024-06-14 09:11 | disposition home or self-care (01) ==
LOC: HO.HMGCLDS 09:10
PROVIDERS: PCP Internal Medicine; Visit Provider Internal Medicine
DX: Z13.1 Encounter for screening for diabetes mellitus (principal); I25.10 Atherosclerotic heart disease of native coronary artery without angina pectoris; E78.5 Hyperlipidemia, unspecified; I10 Essential (primary) hypertension; K21.9 Gastro-esophageal reflux disease without esophagitis
CPT/HCPCS: 36415; 80053; 80061; 82043; 82570; 83036; 84443; 85025; 96127

== ENCOUNTER 2025-02-09 12:46 | Outpatient (AMB) | payer BC, MEDICARE, SELFPAY ==
[2025-02-09 12:54] VITALS: BP 134/78; PULSE 66; RESP 19; TEMP 36.8; O2SAT 95; BMI 41.2
--- NOTE | 2025-02-09 12:54 | A.OFFPC_ITS ---
Vital Signs 02/09/25 12:54 Height 5 ft 4 in Weight 240 lb BMI 41.2 BP 134/78 Blood Pressure Location Lt brachial Position Sitting Respiration 19 Pulse 66 Pulse Source Pulse Oximeter Temp 98.2 F Temp Source Oral Pulse Oximetry (%) 95 Oxygen Delivery Method Room Air Intake Visit Reasons: PE Intake Note: Pt is here today for PE. Allergies lisinopril Allergy (Unknown, Verified 02/09/25 12:56) Cough Medication List - Last Reconciled 02/09/25 by Taryn Payton MD amlodipine 5 mg PO DAILY aspirin 81 mg PO DAILY carvedilol 25 mg PO BID furosemide 20 mg PO Q OTHER DAY losartan 100 mg PO DAILY omeprazole 20 mg PO DAILY potassium chloride ER 10 mEq PO .qd rosuvastatin 40 mg PO DAILY triamterene-hydrochlorothiazid 37.5-25 mg 1 tab PO DAILY Tobacco use date assessed: 02/09/25 Fall risk assessment: No Falls in past year Last assessed Fall Risk: 02/09/25 Dental Screening Dental Screen Date: 06/14/24 HPI PE HPI Details Pt presents for PE. Patient's daughter was diagnosed with stage I breast cancer. [facility] Medical History GERD (gastroesophageal reflux disease) Hyperglycemia [place] of foot Annual physical exam Edema Obese Abnormal Pap smear of cervix Osteoarthritis of right hip History of mammogram Goiter Hypertension Coronary artery disease Hyperlipidemia Surgical History Hx of total knee replacement H/O colonoscopy History of esophagogastroduodenoscopy (EGD) Family History Father No problems noted. Mother HTN (hypertension) Social History Housing: House Patient Tobacco Use Status: Former Tobacco user e-Cigarette/Vaping Use: Never Used service: No Current occupational status: employed Cognitive needs: No Hearing needs: No Vision needs: Yes Questionnaire PHQ-9 Over the last 2 weeks, how often have you been bothered by any of the following problems? 1. Little interest or pleasure in doing things: not at all 2. Feeling down, depressed, or hopeless: not at all 3. Trouble falling or staying asleep, or sleeping too much: not at all 4. Feeling tired or having little energy: not at all 5. Poor appetite or overeating: not at all 6. Feeling bad about yourself - or that you are a failure or have let yourself or your family down: not at all 7. Trouble concentrating on things, such as reading the newspaper or watching television: not at all 8. Moving or speaking so slowly that other people could have noticed. Or the opposite - being so fidgety or restless that you have been moving around a lot more than usual: not at all 9. Thoughts that you would be better off or of hurting yourself in some way: not at all Total score: 0 Depression Screening Interpretation: Negative Depression Screening Done: Yes Source: Developed by Drs. Luc Hammer, Masha Mae, Wayne Ackerman and colleagues, with an educational ted from [employer]. Thrive Questionnaire Date Thrive assessed: 06/13/24 I am a: Patient What is your living situation today?: I have a steady place to live Within the past 12 months, did the food you bought not last and you didn't have the money to get more?: Never true Within the past 12 months, did you worry whether your food would run out before you got money to buy more?: Never true Do you have trouble paying for medicines?: No Do you have trouble getting transportation to medical appointments?: No Do you have trouble paying your heating and electricity bill?: No Do you have trouble taking care of your child, family member or friend?: No Do you have trouble with day-to-day activities such as bathing, preparing meals, shopping, managing finances, etc.?: No Are you currently unemployed and looking for a job?: No Are you interested in more education?: No Please select the resources that you would like help with: None Currently or been in a relationship where the following occur: No concerns reported THRIVE Score: 0 CAROLINA-7 AMB Questionnaire CAROLINA-7 Date CAROLINA - 7 assessed: 06/14/24 Feeling nervous, anxious, or on edge: 0 = Not at all Not being able to stop or control worryin = Not at all Worrying too much about different things: 0 = Not at all Trouble relaxin = Not at all Being so restless that it is hard to sit still: 0 = Not at all Becoming easily annoyed or irritable: 0 = Not at all Feeling afraid as if something awful might happen: 0 = Not at all Total CAROLINA-7 score (0-4 normal; 5-9 mild; 10-14 moderate; 15-21 severe): 0 Source: Developed by Drs. Luc Hammer, Masha Mae, Wayne Ackerman and colleagues, with an educational ted from [employer]. Review of Systems Const All systems reviewed & are unremarkable except as noted in HPI and below Reports no additional complaints Eyes Reports no additional complaints ENT Reports no additional complaints Card Reports no additional complaints Resp Reports no additional complaints GI Reports no additional complaints Reports no additional complaints Physical exam (Primary Care) Vital Signs: Last Vital Signs Temp 98.2 F 02/09/25 12:54 Pulse 66 02/09/25 12:54 Resp 19 02/09/25 12:54 BP 134/78 02/09/25 12:54 Pulse Ox 95 02/09/25 12:54 Oxygen Delivery Method Room Air 02/09/25 12:54 BMI result Body Mass Index 41.2 Tobacco/Smoking Status: Tobacco use Status Tobacco use date assessed 02/09/25 02/09/25 13:01 Patient Tobacco Use Status Former Tobacco user 02/09/25 13:01 e-Cigarette/Vaping Use Never Used 02/09/25 13:01 PHQ-9: PHQ-9 Score PHQ-9: Total score 0 02/09/25 13:01 Depression Screening Interpretation: Negative Thrive Assessment: Date of Thrive Assessment Date Thrive assessed 06/13/24 02/09/25 13:01 Currently or been in a relationship where the following occur: No concerns reported Const General: no acute distress HENMT Head: Yes normal to inspection General nose exam: Normal external nose present Face and sinus: Yes normal facial exam Throat: Yes posterior oropharynx normal Eyes General: appearance normal, both eyes and all related structures Neck Neck: Yes no lymphadenopathy and Yes supple Resp Effort & Inspection: normal respiratory effort Auscultation: clear to auscultation bilaterally Cardio Rhythm: regular rhythm Heart sounds: S1 normal heart sound present and S2 normal heart sound present GI Inspection: Yes normal to inspection Palpation (GI): Soft to palpation Percussion: Yes normal to percussion Auscultation: normal bowel sounds Coding Level of Care Code Est Pt Prev Care >65y(85307) Diagnoses Hyperlipidemia E78.5 Hypertension I10 Hyperglycemia R73.9 Annual physical exam Z00.00 Assessment & Plan Assessment & Plan (1) Hyperlipidemia: Code(s): E78.5 - Hyperlipidemia, unspecified Category: Medical Plan: Continue statin (2) Hypertension: Comment: BP goal less than 130/80 Code(s): I10 - Essential (primary) hypertension Category: Medical Plan: Continue current medications (3) Hyperglycemia: Code(s): R73.9 - Hyperglycemia, unspecified Category: Medical Plan: Patient will return for fasting labs. A1c was 5.7 6 months ago, ADA diet increase exercise weight loss discussed with the patient (4) Annual physical exam: Code(s): Z00.00 - Encounter for general adult medical examination without abnormal findings Category: Medical Plan: Well-balanced diet regular physical activity discussed with the patient she will return for fasting blood work. Patient is up-to-date with the mammogram and colonoscopy Orders: Orders Comprehensive [place]. Panel Fast Today E78.5 - Hyperlipidemia, unspecified, I10 - Essential (primary) hypertension, R73.9 - Hyperglycemia, unspecified Hemoglobin A1c Today E78.5 - Hyperlipidemia, unspecified, I10 - Essential (primary) hypertension, R73.9 - Hyperglycemia, unspecified Lipid Panel Today E78.5 - Hyperlipidemia, unspecified, I10 - Essential (primary) hypertension, R73.9 - Hyperglycemia, unspecified Comprehensive [place]. Panel Fast 6 Months E55.9 - Vitamin D deficiency, unspecified, E78.5 - Hyperlipidemia, unspecified, I10 - Essential (primary) hypertension, R73.9 - Hyperglycemia, unspecified Complete Blood Count Auto Diff 6 Months E55.9 - Vitamin D deficiency, unspecified, E78.5 - Hyperlipidemia, unspecified, I10 - Essential (primary) hypertension, R73.9 - Hyperglycemia, unspecified Lipid Panel 6 Months E55.9 - Vitamin D deficiency, unspecified, E78.5 - Hyperlipidemia, unspecified, I10 - Essential (primary) hypertension, R73.9 - Hyperglycemia, unspecified Vitamin D 25-OH Total 6 Months E55.9 - Vitamin D deficiency, unspecified, E78.5 - Hyperlipidemia, unspecified, I10 - Essential (primary) hypertension, R73.9 - Hyperglycemia, unspecified Complete Blood Count Auto Diff Today E78.5 - Hyperlipidemia, unspecified, I10 - Essential (primary) hypertension, R73.9 - Hyperglycemia, unspecified Microalbumin, Random (w Creat) Today E78.5 - Hyperlipidemia, unspecified, I10 - Essential (primary) hypertension, R73.9 - Hyperglycemia, unspecified Hemoglobin A1c 6 Months E55.9 - Vitamin D deficiency, unspecified, E78.5 - Hyperlipidemia, unspecified, I10 - Essential (primary) hypertension, R73.9 - Hyperglycemia, unspecified Microalbumin, Random (w Creat) 6 Months E55.9 - Vitamin D deficiency, unspecified, E78.5 - Hyperlipidemia, unspecified, I10 - Essential (primary) hypertension, R73.9 - Hyperglycemia, unspecified
--- OUTSIDE RECORDS SUMMARY | 2025-02-09 13:17 | XMS_ITS | Patient Health Record ---
[facility] fernando HerreraShen Address [address] [place] [address] Care Team Providers Care Licensed Psychologist Manager Name Role Phone Taryn Payton MD Primary Care Provider Tayo Ruvalcaba Unavailable [phone] Allergies Allergen (clinical drug ingredient) Drug/Non Drug Allergy documented on EMR Reaction Allergy Type Onset Date Status lisinopril Lisinopril cough Drug Allergy Activ e Reason For Referral No Information Medications Medication SIG (Take, Route, Frequency, Duration) Notes Start Date End Date Status amLODIPine Besylate 5 MG 1 tablet Orally Once a day; Duration: 30 day(s) Active Omeprazole 20 MG 1 capsule 30 minutes before morning meal Orally Once a day; Duration: 30 day(s) Active Carvedilol 12.5 MG 1 tablet with food Orally Twice a day; Duration: 30 day(s) Active Aspirin 81 MG 1 tablet Orally Once a day; Duration: 30 day(s) Active traMADol HCl 50 MG 1 tablet as needed Orally Once a day Active Triamterene-HCTZ 37.5-25 MG 1 tablet in the morning Orally Once a day; Duration: 30 day(s) Active Potassium Chloride ER 10 MEQ 1 tablet with food Orally Twice a day; Duration: 30 day(s) every other day Active Rosuvastatin Calcium 40 MG 1 tablet Orally Once a day; Duration: 30 day(s) Active Furosemide 20 MG 1 tablet Orally Once a day; Duration: 30 day(s) every other day Active Carvedilol 25 MG 1 tablet with food Orally Twice a day; Duration: 30 day(s) Active Losartan Potassium 100 MG 1 tablet Orally Once a day; Duration: 30 day(s) Active Social History Tobacco Use: Social History Observation Description Date Details (start date - stop date) Former Smoker NA - NA Tobacco Use/Smoking Question Answer Notes Are you a: former smoker Additional Findings: Tobacco Non-User Cu rrent non-smoker, but past smoking history unknown Alcohol Screen Question Answer Notes Did you have a drink contain ing alcohol in the past year? Yes How often did you have a dri nk containing alcohol in the past year? Monthly or less (1 point) Points 1 Interpretation Negative Tobacco use other than smoking: Question Answer Notes Are you an other tobacco user? No Problems Problem Type SNOMED Code ICD Code Onset Dates Problem Status W/U Status Risk Notes Problem Acquired hammer toe of left foot (1330991163920210 ) Other hammer toe(s) (acquired), left foot (M20.42) Active confirmed Problem Enthesopathy of ankle AND/OR tarsus (72363189) Osteophyte, left foot (M25.775) Active confirmed Plan Of Treatment Pending Test Test Name Order Date [id number] Debride <25 sq cm 12/19/2020 Insurance Providers Payer Name Payer Address Payer Phone Subscriber Number Group Number Insured Name Patient Relationship to Insured Coverage Start Date Coverage End Date [facility] [id number] [place] [address] [phone] [id number] Taty Alexander Self - patient is the insured Medical (General) History Medical History History ICD Code CAD ( Coronary Artery Disease) edema Reflux ( GERD) goiter Hyperlipidemia Hypertension osteoarthritis Obesity Surgical History Surgery Date(Month/Year) Hip replacement 03/29
== END 2025-02-09 13:27 | disposition home or self-care (01) ==
LOC: HO.HMCC 12:47
PROVIDERS: PCP Internal Medicine; Visit Provider Internal Medicine
DX: E78.5 Hyperlipidemia, unspecified (principal); I10 Essential (primary) hypertension; R73.9 Hyperglycemia, unspecified; Z00.00 Encounter for general adult medical examination without abnormal findings